=== PATIENT | male | born 1950 | race Caucasian/White ===

== ENCOUNTER → 2021-07-05 | Outpatient (CLI) | payer MEDICARE ==
[2016-03-07 10:33] VITALS: BP 156/85
[~2021-07-05] MED LIST: NAPR-695 PO
--- NOTE | 2021-07-05 15:33 | KCIC ---
EXAM: Left knee, 3 views. HISTORY: Acute pain. Fall. COMPARISON: None. FINDINGS: 3 views of the left knee are obtained. There is a left knee arthroplasty in expected positi on. There is no evidence of instrumentation loosening. There is no fracture, dislocation or subluxati on. There is enthesopathy along the superior patella. There is trace joint fluid. IMPRESSION: 1. Left knee arthroplasty in expected position. 2. Trace joint fluid. Electronically signed by: Rhonda Puri MD (07/05/2021 3:30 PM) [id number]
== END ==
LOC: KCIC 15:05
PROVIDERS: ATTEND Internal Medicine
DX: M77.8 Other enthesopathies, not elsewhere classified (principal); M25.562 Pain in left knee
CPT/HCPCS: 73562

== ENCOUNTER → 2021-07-17 | Outpatient (CLI) | payer MEDICARE ==
[2016-03-07 10:33] VITALS: BP 156/85
--- NOTE | 2021-07-17 08:50 | RAD ---
COMPLETE ABDOMINAL ULTRASOUND Clinical History: Reason: elevated lft's / Spl. Instructions: / History: Comparison: None. Technique: Sonographic examination of the abdomen was performed and multiple grayscale and color Dopp ler static images were obtained. Findings: The liver is increased in echogenicity and there is decreased through-transmission. The liver measure s 15.1 cm. Ultrasound is not sensitive for detecting solid liver lesions. Portal flow is hepatopetal. The common bile duct is normal in caliber, measuring 5 mm in diameter. There is no gallbladder wall thickening. Per report, sonographic Dumont sign is negative. There is no cholelithiasis or pericholecystic fluid. The pancreas is mostly obscured due to overlying bowel gas. The right kidney is normal in echotexture and measures 12.7 cm. The left kidney is normal in echotex ture and measures 11.4 cm. Corticomedullary differentiation is preserved. There is no hydronephrosis. The spleen is not enlarged, measuring 11.4 cm. There are calcified granulomas in the spleen. Visualized portions of the abdominal aorta are normal. IVC is not well seen due to overlying bowel ga s. IMPRESSION: Fatty infiltration of the liver. Electronically signed by: Tavares Poole MD (07/17/2021 8:47 AM) [id number]
== END ==
LOC: US 07:15
PROVIDERS: ATTEND Internal Medicine
DX: K76.0 Fatty (change of) liver, not elsewhere classified (principal); D73.89 Other diseases of spleen
CPT/HCPCS: 76700